=== PATIENT | female | born 2000 | race Hispanic/Latino ===

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

== ENCOUNTER → 2019-10-04 | Outpatient (CLI) | payer OTHER ==
[~2019-10-04] MED LIST: LEVO500T2 PO
== END | disposition home or self-care (01) ==
LOC: OIH 09:51
PROVIDERS: ATTEND Family Medicine
DX: Z20.1 Contact with and (suspected) exposure to tuberculosis (principal)
CPT/HCPCS: 71046

== ENCOUNTER → 2023-05-18 | Outpatient (CLI) | payer OTHER | END | disposition home or self-care (01) | LOC: RAH 08:12 | PROVIDERS: ATTEND Family Medicine | DX: M25.562 Pain in left knee (principal); M54.50 Low back pain, unspecified | CPT/HCPCS: 72100; 73562 ==